=== PATIENT | male | born 1955 | race Hispanic/Latino ===

== ENCOUNTER 2019-10-25 09:22 | Outpatient (CLI) | payer BC ==
--- NOTE | 2019-10-25 10:27 | Ultrasound Report ---
LIMITED RUQ ABDOMINAL ULTRASOUND INDICATION: ELEVATED TRANSAMINASE LEVEL. COMPARISON: No relevant prior imaging study available. FINDINGS: Pancreas: Obscured by bowel gas. Abdominal Aorta: No significant abnormality. IVC: No significant abnormality. Liver: The liver measures 18.9 cm in length. Diffuse fatty infiltration is suspected. No focal mass. . Normal hepatopedal blood flow in the main portal vein. Gallbladder: Multiple small shadowing stones are identified in the gallbladder. No wall thickening or abnormal dilatation.. Bile ducts: No significant abnormality. Common bile duct measures 3.3 mm. Right kidney: No significant abnormality visualized.. Free fluid: None. Additional Findings: None. IMPRESSION: Hepatomegaly with diffuse fatty infiltration. Cholelithiasis.. Signer Name: Raheem Casas Jr, MD Signed: 10/25/2019 10:23 AM Workstation Name: [id number]
== END 2019-10-25 09:23 | disposition home or self-care (01) ==
LOC: SPVWC 09:22
PROVIDERS: ATTEND Internal Medicine
DX: K76.0 Fatty (change of) liver, not elsewhere classified (principal); K80.80 Other cholelithiasis without obstruction
CPT/HCPCS: 76705